=== PATIENT | male | born 1985 | race Caucasian/White ===

== ENCOUNTER 2016-11-07 11:06 | Emergency (ER) | payer OTHER ==
[~2016-11-07 11:06] MED LIST: MELO-253 PO
[2016-11-07 11:32] VITALS: BP 154/103; PULSE 130; O2SAT 98
[2016-11-07 11:40] VITALS: BP 154/103; PULSE 130; O2SAT 98
--- NOTE | 2016-11-07 13:10 | ED.REPORT ---
HPI-Psychiatric Illness Date of Service Nov 07, 2016 ED Provider: Alan Hendrickson MD This is a 31 year old male presenting to the emergency department via police due to visual hallucinations that occurred one hour ago. Patient reports seeing 2-3 men in his home who were not present per spouse who called emergency services. Pt has a history of visual hallucinations with methamphetamine use but he denies recent meth use at this time. Denies suicidal ideation, homicidal ideation, illicit substance abuse, or history of psychiatric illness. Nursing Notes Stated Complaint: HALLUCINATION/TALKING ABOUT SHOOTING PEOPLE Chief Complaint: Psychiatric Complaint Nursing Notes Reviewed: Yes Allergies: Coded Allergies: No Known Allergies (Verified Allergy, Unknown, 08/08/15) Scheduled Meloxicam (Meloxicam) 15 Mg Tablet 15 MG PO DAILY General Time Seen by MD: 13:08 Chief Complaint Hallucinations, visual Hx Obtained From: Patient Arrived By: Police Onset Occurred: Just prior to arrival Symptom Duration: Since onset Severity: Current: No pain currently Pertinent Negative: Pt denies other symptoms Recent Healthcare: No recent doctor visit, No recent hospitalization Similar Sx Previous: No Risk-Psychiatric Illness Suicide Risk Stratification RF Statements: Risk factors reviewed, No risk factors Past Medical History Past Medical History Denies Past Surgical History Denies Smoking History Never Smoker Social History Drug Use: Denies drug use Ambulatory Status Independent Review of Systems Constitutional: Denies: Chills, Fever Respiratory: Denies: Shortness of breath Cardiovascular: Denies: Chest pain GI: Denies: Nausea, Vomiting Neurologic: Denies: Headache Psychiatric: Reports: Hallucinations, visual, Denies: Homicidal ideation, Suicidal ideation Complete sys rev & neg: except as marked. Physical Exam Initial Vital Signs Vital Signs (First) Date Time Temp Pulse Resp B/P Pulse Ox O2 Delivery O2 Flow Rate FiO2 11/07/16 11:32 36.7 130 154/103 98 Room Air Initial VS: Reviewed Head / Eyes: Atraumatic, Normocephalic, PERRL ENT: Mucous membranes moist, Conjunctiva normal, No scleral icterus Neck: Supple, Non-tender, Full range of motion Respiratory: Breath sounds normal, Clear to auscultation, No respiratory distress Cardiovascular: Regular rate & rhythm, Heart sounds normal, Intact distal pulses Abdomen / GI: Soft, Non-tender, No guarding, No rebound, No distention Extremities: Vascular intact, Neuro intact, No swelling, No tenderness Skin: Warm, Dry, No cyanosis General/Constitutional: Awake, Alert Neurologic: Oriented X3, No motor deficits, No sensory deficits, CN II - XII intact Psychiatric: Not suicidal, Not homicidal Abnormal Thinking / Perception: Positive: Flight of ideas Interpretation & Diagnostics Lab Results Interpretation Result Diagram: 11/07/16 1346 11/07/16 1346 Test 11/07/16 11:27 11/07/16 13:46 Hold Urine Received (Received) White Blood Count 6.8th/mm3 (3.8-10.1) Red Blood Count 5.19mil/mm3 (4.40-5.80) Hemoglobin 15.5g/dL (13.8-17.2) Hematocrit 42.9% (41.0-50.0) Mean Corpuscular Volume 82.7fL (81-100) Mean Corpuscular Hemoglobin 29.9pg (27.0-35.0) Mean Corpuscular Hemoglobin Concent 36.1% (32.0-37.0) Red Cell Distribution Width 13.7% (12.3-15.4) Platelet Count 297bil/L (150-400) Neutrophils (%) (Auto) 76.4% (40-74) Lymphocytes (%) (Auto) 12.3% (14-46) Monocytes (%) (Auto) 8.9% (4-12) Eosinophils (%) (Auto) 1.9% (0-5) Basophils (%) (Auto) 0.4% (0-3) Sodium Level 140mEq/L (134-144) Potassium Level 3.2mEq/L (3.5-5.2) Chloride Level 101mEq/L (97-108) Carbon Dioxide Level 22mmol/L (18-29) Blood Urea Nitrogen 6mg/dL (6-20) Creatinine 0.80mg/dL (0.76-1.27) Estimat Glomerular Filtration Rate 121mL/min (>59) Glucose Level 147mg/dL (60-99) Calcium Level 9.1mg/dL (8.5-10.1) Total Bilirubin 1.1mg/dL (0.0-1.2) Aspartate Amino Transf (AST/SGOT) 41U/L (0-50) Alanine Aminotransferase (ALT/SGPT) 66U/L (0-44) Alkaline Phosphatase 66U/L (25-150) Total Protein 7.2g/dL (6.4-8.4) Albumin 4.4g/dL (3.4-5.0) Thyroid Stimulating Hormone (TSH) 0.886uIU/mL (0.450-4.500) Hold Jones Top Tube Received (Received) Re-Eval/Medical Decision Med Decision/Clinical Course 31-year-old male history of methamphetamine abuse presenting with hallucinations. Patient reports he has had hallucinations in the past once when he was on methamphetamines 2 years ago. He also used methamphetamines again today reportedly to get away from his . He reports seeing people he is unsure if they were there. Denies any suicidal or homicidal ideation. Lab workup was normal. Patient was observed for almost 7 hours and sobered up. Denied any suicidal ideation, homicidal ideation or hallucinations. I discussed with social work that he could be discharged home. Patient reports he feels safe. Return precautions given. Re-Evaluation/Progress : Time of Eval: 17:47 )( Re-Eval Psychiatric: No danger to self, No danger to others, No suicidal ideation, No homicidal ideation Re-Evaluation/Progress Note: Pt feels well, denies recent methamphetamine use. Denies suicidal or homicidal ideation, would like to go home. Counseled Regarding: Diagnosis, Lab results, Need for follow-up, When/why to return to ED Discharge & Departure Impression: Primary Impression: Methamphetamine abuse Disposition: Home Discharge Condition All VS Reviewed: Yes Condition: Stable Patient Instructions: Methamphetamine Abuse (ED) Additional Instructions: Stop using methamphetamine. Follow-up with your primary care provider. Return to the emergency department for any new or worsening symptoms Referrals: NOPCP (PCP) Scribe Attestation Portions of this note were transcribed by Angy Jackson. I, Dr. Hendrickson personally performed the history, physical exam and medical decision-making; I reviewed and confirmed the accuracy of the information in the transcribed note. Signed by: deejay Brown. 11/07/2016, 18:00. Alan Hendrickson MD Nov 07, 2016 13:09 ANGY JACKSON Nov 07, 2016 13:11
[2016-11-07 13:56] LABS: BASOPHILS % (AUTO) 0.4 % (0-3); EOSINOPHILS % (AUTO) 1.9 % (0-5); MONOCYTES % (AUTO) 8.9 % (4-12); Mean Corpuscular Hemoglobin 29.9 pg (27.0-35.0); Mean Corpuscular Volume 82.7 fL (81-100); NEUTROPHILS % (AUTO) 76.4 % (40-74); Platelet Count 297 bil/L (150-400)
[2016-11-07 17:49] VITALS: BP 146/85; PULSE 93; O2SAT 98
[2016-11-07 18:28] VITALS: BP 146/85; PULSE 93; O2SAT 98
== END 2016-11-07 18:30 | disposition home or self-care (01) ==
LOC: SED 11:06
DX: F15.10 Other stimulant abuse, uncomplicated (principal)